=== PATIENT | male | born 1985 | race African-American/Black ===

== ENCOUNTER 2019-01-24 21:04 | Emergency (ER) | payer SELFPAY ==
[~2019-01-24] VITALS: Ht 190.5 cm; Wt 104.3 kg
[2019-01-24 22:00] VITALS: BP 143/80
[2019-01-24] MEDS ORDERED: TETRACAINE 0.5% OPHTH SOLUTION 4ML BOTTLE. OU ONE (23:00)
[2019-01-24] MEDS ORDERED: FLUORESCEIN OPHTH TEST STRIP. OU ONE (23:00)
[2019-01-24] MEDS ORDERED: DIPHTH,PERTUSS(ACELL),TET TOX 0.5 ML DISP.SYRIN. VAX IM ONE (23:45)
[2019-01-24] MEDS ORDERED: ERYT1OIN6 OP (23:48)
--- NOTE | 2019-01-24 23:49 | PHYS DOC ---
Past Medical History Past Medical History: No Pertinent History Past Surgical History: No Surgical History Alcohol Use: None Drug Use: None Adult General Chief Complaint Chief Complaint: EYE PROBLEMS HPI HPI Patient is a 33 year old male who presents with patient works at [employer] states he is walking down 1 miles when something suddenly flew into his eye. Patient now has eye pain and feels like something is in his eye. Patient rates his pain an 8 out of 10. Review of Systems Review of Systems Constitutional: Denies fever or chills [] Eyes: Denies change in visual acuity. +redness, or +eye pain [] All other systems were reviewed and found to be within normal limits, except as documented in this note. Current Medications Current Medications Current Medications Medications (Trade) Dose Ordered Sig/Lee Start Time Stop Time Status Last Admin Dose Admin Diphtheria/ Tetanus/Acell Pertussis (Boostrix) 0.5 ml ONCE ONCE 01/24/19 23:45 01/24/19 23:46 DC 01/24/19 23:45 0.5 ML Fluorescein Sodium (Ful-Lorrie) 1 strip 1X ONCE 01/24/19 23:00 01/24/19 23:01 DC 01/24/19 22:51 1 STRIP Tetracaine HCl (Tetracaine) 1 drop 1X ONCE 01/24/19 23:00 01/24/19 23:01 DC 01/24/19 22:51 1 DROP Allergies Allergies Allergies Coded Allergies Type Severity Reaction Last Updated Verified Penicillins Allergy Intermediate 01/24/19 Yes Physical Exam Physical Exam Constitutional: Well developed, well nourished, no acute distress, non-toxic appearance. [] Eyes: PERRLA, EOMI, conjunctiva red, brown foreign body seen left eyelid, no discharge. [] es. [] Skin: Warm, dry, no erythema, no rash. [] Neurologic: Alert and oriented X 3, normal motor function, normal sensory function, no focal deficits noted. [] Psychologic: Affect normal, judgement normal, mood normal. [] Current Patient Data Vital Signs Vital Signs Date Time Temp Pulse Resp B/P (MAP) Pulse Ox O2 Delivery O2 Flow Rate FiO2 01/24/19 22:00 97.8 72 15 143/80 (101) 98 Room Air 97.8 EKG EKG [] Radiology/Procedures Radiology/Procedures [] Course & Med Decision Making Course & Med Decision Making Patient is a 33 year old male who presents with patient works at [employer] states he is walking down 1 miles when something suddenly flew into his eye. Patient now has eye pain and feels like something is in his eye. Patient rates his pain an 8 out of 10. She denies any visual changes. Patient denies any light sensitivity. Conjunctiva is red. Signs within normal limits. Skin pink warm and dry. Alert and oriented. Ambulatory with steady gait. Upon left lid eversion there is a small foreign body that is brown in color seen. Using a cotton swab I'm able to remove the very small foreign body that looks like it may be a piece of wood. Removing this patient states he is feeling much better. Patient is given a referral to eye doctor to follow-up with. I gave him prescription for erythromycin ointment to put in his eye. I also gave him some pain medication. Patient states he is feeling much better. Eye Exam w/ slit lamp: Visual Acuity: Visual Fleming: Intact in all four quadrants bilaterally Lac ducts/glands: No swelling Lids w/ evertion: Normal, left eyelid foreign body and removed Conj/[place]: Res, positive Fluorescein/Alpesh's Anterior Chamber: Clear Tonopen readings: Retina exam: No obvious abnormality [] Dragon Disclaimer Dragon Disclaimer This electronic medical record was generated, in whole or in part, using a voice recognition dictation system. Departure Departure Impression: Primary Impression: Corneal abrasion Disposition: HOME, SELF-CARE Condition: STABLE Referrals: NO PCP (PCP) EMILIA WIN MD Patient Instructions: Eye - Corneal Abrasion Additional Instructions: Follow-up her primary care provider or a eye doctor. Take medications as prescribed. Scripts Hydrocodone Bit/Acetaminophen (HYDROCODONE-APAP 5-325 ) 1 Tab Tablet 1 TAB PO PRN Q6HRS PRN for PAIN, #10 TAB 0 Refills Prov: JOSE G BATEMAN APRN 01/24/19 Erythromycin Base (Erythromycin) 1 Gm Oint...g. 1 GM OP Q6HRS for 10 Days, #1 MISC Prov: JOSE G BATEMAN [employer] 01/24/19 Problem Qualifiers Primary Impression: Corneal abrasion Encounter type: initial encounter Laterality: left Qualified Codes: S05.02XA - Injury of conjunctiva and corneal abrasion without foreign body, left eye, initial encounter JOSE G BATEMAN APRN Jan 24, 2019 23:49
[2019-01-24] MEDS ORDERED: HYDR-2761 PO (23:51)
== END 2019-01-24 23:58 | disposition home or self-care (01) ==
LOC: ER 21:04
DX: S05.02XA Injury of conjunctiva and corneal abrasion without foreign body, left eye, initial encounter (principal); Z88.0 Allergy status to penicillin; X58.XXXA Exposure to other specified factors, initial encounter; Y93.01 Activity, walking, marching and hiking; Y92.89 Other specified places as the place of occurrence of the external cause; Y99.8 Other external cause status
CPT/HCPCS: 65222; 90471; 90715; 99284